=== PATIENT | male | born 1945 | race Caucasian/White ===

== ENCOUNTER 2020-06-28 11:29 | Emergency (ER) | payer MEDICARE, OTHER ==
[~2020-06-28] VITALS: Ht 175.3 cm; Wt 94.8 kg
[~2020-06-28 11:29] MED LIST: ATOR10TA PO; CHOL100013 PO
[2020-06-28] MEDS ORDERED: ONDANSETRON PF 4 MG/2 ML VIAL. ONE (11:42)
--- NOTE | 2020-06-28 11:55 | PHYS DOC ---
General Adult EDM: Chief Complaint: CHEST PAIN HPI: HPI: The history was obtained from the patient. Patient is a 75-year-old male with PMH hyperlipidemia who presents with a chief complaint of chest pain. Patient states he developed chest pain after eating steak last night. He states that the chest discomfort occurred after swallowing a large piece. He states this is happened before but typically passes after a brief period of time. He states he has had an upper endoscopy that was normal a couple of years ago. He states he does not get chest pain or shortness of breath at baseline. He states he has no shortness of currently. He denies any vomiting. He does note some nausea. He states last night it was difficult for him to manage his own secretions but that has improved some. He states he is able to drink some fluids which increases his discomfort but he is able to keep them down overall. He denies any history of coronary artery disease or HI. Denies any syncope. Denies any feelings of irregular rapid heartbeat. No other complaints. Review of Systems: Review of Systems: Constitutional: Denies fever or chills Eyes: Denies change in visual acuity HENT: Denies nasal congestion or sore throat Respiratory: Denies cough or shortness of breath Cardiovascular: Positive for chest pain GI: Positive for nausea : Denies dysuria Musculoskeletal: Denies back pain or joint pain Integument: Denies rash Neurologic: Denies headache, focal weakness or sensory changes Endocrine: Denies polyuria or polydipsia Lymphatic: Denies swollen glands Psychiatric: Denies depression or anxiety Heart Score: Risk Factors: Risk Factors: DM, Current or recent (<one month) smoker, HTN, HLP, family history of CAD, obesity. Risk Scores: Score 0 - 3: 2.5% MACE over next 6 weeks - Discharge Home Score 4 - 6: 20.3% MACE over next 6 weeks - Admit for Clinical Observation Score 7 - 10: 72.7% MACE over next 6 weeks - Early Invasive Strategies Current Medications: Current Meds: Current Medications Medications (Trade) Dose Ordered Sig/[place] Start Time Stop Time Status Last Admin Dose Admin Ondansetron HCl (Zofran) 4 mg STK-MED ONCE 06/28/20 11:42 06/28/20 11:43 DC Allergies: Allergies: Allergies Coded Allergies Type Severity Reaction Last Updated Verified No Known Drug Allergies 07/30/14 No Physical Exam: PE: Constitutional: Well developed, well nourished, no acute distress, non-toxic appearance. [] HENT: Normocephalic, atraumatic, bilateral external ears normal, oropharynx moist, no oral exudates, nose normal. [] Eyes: PERRLA, EOMI, conjunctiva normal, no discharge. [] Neck: Normal range of motion, no tenderness, supple, no stridor. [] Cardiovascular:Heart rate regular rhythm, no murmur [] Lungs & Thorax: Bilateral breath sounds clear to auscultation [] Abdomen: , soft, no tenderness, no masses, no pulsatile masses. [] Skin: Warm, dry, no erythema, no rash. [] Back: No tenderness, no CVA tenderness. [] Extremities: No tenderness, no cyanosis, no clubbing, ROM intact, no edema. [] Neurologic: Alert and oriented X 3, normal motor function, normal sensory function, no focal deficits noted. [] Psychologic: Affect normal, judgement normal, mood normal. [] EKG: EKG: [] EKG consistent with normal sinus rhythm. Ventricular rate of 85 bpm. [place] normal. Intervals normal. No acute ischemic changes appreciated. A flutter read by computer interpretation likely secondary to artifact. No previous for comparison. Radiology/Procedures: Radiology/Procedures: [] Course & Med Decision Making: Course & Med Decision Making Pertinent Labs and Imaging studies reviewed. (See chart for details) Patient is an uncomfortable appearing 75-year-old male who presents with chief complaint of chest pain and epigastric discomfort after eating steak last night. I do feel the signs and symptoms are most concerning for food impaction. EKG was performed however it shows no acute ischemic changes. Troponin will be deferred. Patient was given IV Pepcid and Protonix with minimal relief. Glucagon was also administered and did not relieve the patient's symptoms. CT of the chest did reveal dilated distal esophagus with food debris and fluid collected. I did speak with the on-call GI specialist Dr. Luevano. He did re commend endoscopy. Patient will be transferred to [facility]. Accepted under Dr. Segura. Stable at time of transfer. Juliet Disclaimer: Juliet Disclaimer: This electronic medical record was generated, in whole or in part, using a voice recognition dictation system. Departure Departure: Impression: Primary Impression: Food impaction of esophagus Qualified Codes: T18.128A - Food in esophagus causing other injury, initial encounter Disposition: 02 XFER SHT-TRM HOSP Condition: GOOD Referrals: JUANJO MINER MD (PCP) Justification of Admission: Justification of Admission: Justification of Admission Dx: Yes Comments: food impaction LYNETTE HUMPHREYS DO Jun 28, 2020 11:55
[2020-06-28] MEDS ORDERED: PANTOPRAZOLE IV 40 MG VIAL. IVP ONE ×2 (12:10→12:45)
[2020-06-28] MEDS ORDERED: FAMOTIDINE 20 MG/2 ML VIAL IVP ONE (12:10)
[2020-06-28] MEDS ORDERED: GLUCAGON,HUMAN RECOMBINANT 1 MG KIT. IV ONE (12:10)
--- NOTE | 2020-06-28 12:13 | RAD ---
Single view chest dated 06/28/2020: No comparison available. Clinical Indication: Possible retained food bolus. Findings: Single upright portable exam of the chest was performed. Heart size and mediastinal contours are within normal limits given technique. The lungs are clear without evidence of focal consolidation. Vascular interstitium is within normal limits. Impression:: No acute radiographic abnormality. Electronically signed by: Kvng Mitchell MD (06/28/2020 12:09 PM) [id number]
[2020-06-28] MEDS ORDERED: MAG HYDROX/AL HYDROX/SIMETH 30 ML ORAL.SUSP PO ONE (12:45)
[2020-06-28 13:05] VITALS: BP 140/76
[2020-06-28] MEDS ORDERED: ONDANSETRON PF 4 MG/2 ML VIAL. IVP PRN (13:15)
[2020-06-28 13:35] LABS: BASO % 0 % (0-3); CALCIUM 9.4 mg/dL (8.5-10.1); CREATININE 1.1 mg/dL (0.7-1.3); EOS % 0 % (0-3); GFR 65.6; HEMATOCRIT 49.2 % (39.0-53.0); HEMOGLOBIN 16.4 g/dL (13.0-17.5); LYMPH # 1.2 x10^3/uL (1.0-4.8); LYMPH % 14 % (24-48); MEAN CORPUSCULAR HEMOGLOBIN 33 pg (25-35); MEAN CORPUSCULAR HGB CONC 33 g/dL (31-37); MEAN CORPUSCULAR VOLUME 99 fL (79-100); MONO # 0.5 x10^3/uL (0.0-1.1); MONO % 6 % (0-9); NEUT # 6.9 x10^3uL (1.8-7.7); NEUT % 80 % (31-73); PLATELET COUNT 244 x10^3/uL (140-400); POTASSIUM 3.9 mmol/L (3.5-5.1); RED CELL DISTRIBUTION WIDTH 13.4 % (11.5-14.5); WHITE BLOOD COUNT 8.7 x10^3/uL (4.0-11.0)
--- NOTE | 2020-06-28 13:37 | RAD ---
CT CHEST WO CONTRAST History: Food impaction. Choking. Technique: Noncontrast CT of the chest was performed. Coronal and sagittal reconstructions were performed. Exposure: One or more of the following individualized dose reduction techniques were utilized for this examination: 1. Automated exposure control 2. Adjustment of the mA and/or kV according to patient size 3. Use of iterative reconstruction technique. Comparison: None Findings: Chest: Decreased within the distal esophagus with hypodense component. There is mild esophageal dilatation filled with fluid proximal to the debris. Mild distal esophageal wall thickening. No pneumomediastinum. Coronary calcification. No pathologic lymphadenopathy. No consolidation or pleural effusion. Mild linear bilateral lower lobe atelectasis. Upper abdomen: The imaged upper abdomen is unremarkable. Bones: No pathologic osseous lesions. Impression: 1. Debris within the distal esophagus with fluid-filled mildly dilated esophagus proximal. 2. Mild esophageal wall thickening at the level of the debris, may relate to stricture. EGD may be indicated for debris removal and evaluation of underlying mass. Electronically signed by: Alejandro Alfred DO (06/28/2020 1:34 PM) [facility]
== END 2020-06-28 13:40 | disposition short-term general hospital (02) ==
LOC: ER 11:29
DX: T18.128A Food in esophagus causing other injury, initial encounter (principal); K56.49 Other impaction of intestine; X58.XXXA Exposure to other specified factors, initial encounter; Y93.89 Activity, other specified; Y92.89 Other specified places as the place of occurrence of the external cause; Y99.8 Other external cause status
CPT/HCPCS: 36415; 71045; 71250; 80048; 85025; 96374; 96375; 99285; C9113; J1610; J3490

== ENCOUNTER → 2020-07-29 | Outpatient (CLI) | payer MEDICARE, OTHER ==
--- NOTE | 2020-07-30 13:27 | CARD ---
MR#: [id number] Date of Study: 07/29/2020 Ordering Physician: NESHA SAMSON, Referring Physician: NESHA SAMSON, Tech: Marilou Everett APPROVED REPORT EXAM: Two-dimensional and M-mode echocardiogram with Doppler and color Doppler. Other Information Quality : AverageHR: 73bpm INDICATION Chest Pain RISK FACTORS Hyperlipidemia 2D DIMENSIONS Left Atrium(2D)3.1 (1.6-4.0cm)IVSd1.0 (0.7-1.1cm) Aortic Root(2D)2.9 (2.0-3.7cm)LVDd5.5 (3.9-5.9cm) LVOT Diameter1.9 (1.8-2.4cm)PWd1.0 (0.7-1.1cm) LVDs2.9 (2.5-4.0cm)FS (%) 47.0 % SV113.0 mlLVEF(%)77.9 (>50%) Aortic Valve AoV Peak Nader.194.9cm/sAoV VTI43.4cm AO Peak GR.15.2mmHgLVOT Peak Nader.123.9cm/s LVOT VTI 27.33cmAO Mean GR.8mmHg SUBHA (VMAX)1.61fg9EVN (VTI)1.87cm2 Mitral Valve MV E Rjbdrbuk14.3cm/sMV E Peak Gr.2mmHg MV DECEL FETW713mlPJ A Nbhhkvlp070.1cm/s MV E Mean Gr.1mmHgE/A Ratio0.7 Pulmonary Valve PV Peak Peawcbgk91.7cm/sPV Peak Grad.3mmHg Tricuspid Valve TR P. Ckgerynn133oe/sRAP RQCDSHFG4zjLb TR Peak Gr.78okNoDNNM10ahFx Pulmonary Vein S1 Bdiyyute52.2cm/sD2 Rywelmnr62.5cm/s LEFT VENTRICLE The left ventricle is normal size. There is normal left ventricular wall thickness. The left ventricu lar systolic function is normal and the ejection fraction is within normal range. The Ejection Fracti on is 55-60%. There is normal LV segmental wall motion. Transmitral Doppler flow pattern is Grade I-a bnormal relaxation pattern. RIGHT VENTRICLE The right ventricle is normal size. There is normal right ventricular wall thickness. The right ventr icular systolic function is normal. ATRIA The left atrium is borderline dilated. The right atrium size is normal. The interatrial septum is int act with no evidence for an atrial septal defect or patent foramen ovale as noted on 2-D or Doppler i maging. AORTIC VALVE The aortic valve is normal in structure and function. Doppler and Color Flow revealed no significant aortic regurgitation. There is no significant aortic valvular stenosis. Calculated aortic valve area is 2.1 cm2 with maximum pressure gradient of 15 mmHg and mean pressure gradient of 9 mmHg. MITRAL VALVE The mitral valve is normal in structure and function. There is no evidence of mitral valve prolapse. There is no mitral valve stenosis. Doppler and Color-flow revealed trace mitral regurgitation. TRICUSPID VALVE The tricuspid valve is normal in structure and function. Doppler and Color Flow revealed trace tricus pid regurgitation with an estimated PAP of 33 mmHg. There is no tricuspid valve stenosis. PULMONIC VALVE The pulmonic valve is not well visualized. Doppler and Color Flow revealed no pulmonic valvular regur gitation. There is no pulmonic valvular stenosis. GREAT VESSELS The aortic root is normal in size. The IVC is normal in size and collapses >50% with inspiration. PERICARDIAL EFFUSION There is no evidence of significant pericardial effusion. Critical Notification Critical Value: No <Conclusion> The left ventricular systolic function is normal and the ejection fraction is within normal range. Th e Ejection Fraction is 55-60%. There is normal LV segmental wall motion. Signed by : Nesha Samson, Electronically Approved : 07/30/2020 13:26:22
== END | disposition home or self-care (01) ==
LOC: ECHO 12:58
PROVIDERS: ATTEND Internal Medicine Cardiovascular Disease
DX: R07.9 Chest pain, unspecified (principal)
CPT/HCPCS: 93306

== ENCOUNTER → 2021-01-29 | Outpatient (CLI) | payer MEDICARE, OTHER ==
[~2021-01-29] MED LIST changes: +ACET325T9 PO; +FAMO-63 PO
== END ==
LOC: LAB 10:00
PROVIDERS: ATTEND Nurse Anesthetist, Certified Registered
DX: Z01.812 Encounter for preprocedural laboratory examination (principal); Z20.822 Contact with and (suspected) exposure to COVID-19; Z86.010 Personal history of colon polyps
CPT/HCPCS: U0003

== ENCOUNTER → 2021-02-02 | Day surgery (SDC) | payer MEDICARE, OTHER ==
[~2021-02-02] MED LIST changes: +IPRATRPIUM/ALBUTEROL 0.5/2.5MG 3 ML NEBU. NEB PRN; +IV RINGERS SOLUTION,LACTATED 1,000 ML IV SCH; +MIDAZOLAM HCL PF 2 MG/2 ML VIAL. IV ONE; +ONDANSETRON PF 4 MG/2 ML VIAL. IV PRN; +PROPOFOL 10,000 MCG/ML (20ML) VIAL IV ONE
[2021-02-02 12:11] VITALS: BP 146/76
--- NOTE | 2021-02-05 14:11 | PATHOLOGY ---
[facility] Accession Number: [id number] . 01 Material submitted: . PART A: colon - DESCENDING POLYP. Modifiers: descending PART B: sigmoid colon - SIGMOID POLYP . 01 Clinical history: . POSITIVE COLOGARD COLONOSCOPY . 02 Diagnosis: A. Colon biopsy, descending colon polyp: - Tubular adenoma. . B. Colon biopsy, sigmoid colon polyp: - Tubular adenoma. LBQ 02/05/2021 1021 Local . 02 Comment: There is no high grade dysplasia or evidence of malignancy. (JPM/db; 02/05/2021) . 02 Electronically signed: . Marcus Cárdenas MD, Pathologist NPI- [id number] . 01 Gross description: . A. The specimen is received in formalin, labeled "Josef Thomas, descending polyp". Received is a segment of light almaguer tissue measuring 0.7 cm in maximum dimensions. The surgical margin is inked and the segment is bisected. The specimen is submitted entirely in cassette A1. . B. The specimen is received in formalin, labeled "Josef Thomas, sigmoid polyp". Received is a segment of light almaguer tissue measuring 1.2 cm in maximum dimensions. The surgical margin is inked and the segment is bisected. The specimen is submitted entirely in cassette B1. (CAA; 02/04/2021) QAC/QAC 02/04/2021 1101 Local . 02 Pathologist provided ICD-10: D12.4, D12.5 . 02 CPT . 884047, 134938 Specimen Comment: A courtesy copy of this report has been sent to [phone] Specimen Comment: Report sent to Performed at: [address] [place] [address] [address], [place] [id number] MD Mauri Villatoro MD Phone: [phone] Performed at: [address] [id number] MD Marcus Cárdenas MD Phone: [phone]
== END | disposition home or self-care (01) ==
LOC: SURG 09:57
PROVIDERS: ATTEND Emergency Medicine
DX: R19.5 Other fecal abnormalities (principal); D12.4 Benign neoplasm of descending colon; D12.5 Benign neoplasm of sigmoid colon; K57.30 Diverticulosis of large intestine without perforation or abscess without bleeding; Z86.010 Personal history of colon polyps; Z79.899 Other long term (current) drug therapy
CPT/HCPCS: 45385; 88305; J2704; J7120